=== PATIENT | female | born 1965 | race Caucasian/White ===

== ENCOUNTER 2018-07-01 06:36 | Emergency (ER) | payer OTHER ==
[~2018-07-01] VITALS: Ht 170.2 cm; Wt 86.4 kg
[~2018-07-01 06:36] MED LIST: BENADRYL50 MG PO; LEVAQUIN 750MG750 MG PO; ZYRTEC 10MG10 MG PO
[2018-07-01 06:40] VITALS: TEMP 98
[2018-07-01 08:03] VITALS: BP 162/95; PULSE 62
== END 2018-07-01 08:20 | disposition home or self-care (01) ==
LOC: COL.ER 06:36
DX: R04.0 Epistaxis (principal); M19.90 Unspecified osteoarthritis, unspecified site; F17.210 Nicotine dependence, cigarettes, uncomplicated; Z90.710 Acquired absence of both cervix and uterus

== ENCOUNTER 2018-07-03 14:26 | Emergency (ER) | payer OTHER ==
[~2018-07-03] VITALS: Ht 170.2 cm; Wt 86.4 kg
[2018-07-03 14:41] VITALS: TEMP 98.4
[2018-07-03 15:57] LABS: BASO % 0.6 % (0.0-2.0); EOS % 0.2 % (0-4.0); GRAN # 4.5 (1.4-6.5); GRAN % 72.5 % (42.2-75.2); HEMOGLOBIN 11.3 g/dl (12.5-16.0); LYMPH # 1.3 (1.2-3.4); LYMPH % 20.2 % (20.0-51.0); MEAN CELL VOLUME 90 fl (80.0-100.0); MEAN CORPUSCULAR HEMOGLOBIN 30 pg (27.0-31.0); MEAN CORPUSCULAR HGB CONC 33 g/dl (33.0-37.0); MEAN PLATELET VOLUME 10.4 fl (7.4-10.4); MONO # 0.4 (0.1-0.6); MONO % 6.3 % (1.7-9.3); PLATELET COUNT 236 K/mm3 (130-400); REDCELL DISTRIBUTION WIDTH-CV 13.3 % (11.5-14.5)
[2018-07-03 15:59] LABS: HEMATOCRIT 34.3 % (37.0-47.0)
[2018-07-03 16:06] LABS: CALCIUM 9.6 mg/dL (8.4-10.2); CREATININE, serum 0.83 mg/dL (0.52-1.25); POTASSIUM 3.9 mmol/L (3.4-5.0)
[2018-07-03] MEDS ORDERED: NORVASC 5MG5 MG/TAB PO (16:30)
[2018-07-03 17:49] VITALS: BP 150/70; PULSE 60
== END 2018-07-03 17:52 | disposition home or self-care (01) ==
LOC: COL.ER 14:26
PROVIDERS: Emergency Medicine
DX: R04.0 Epistaxis (principal); I10 Essential (primary) hypertension

== ENCOUNTER 2018-07-04 21:22 | Emergency (ER) | payer OTHER ==
[~2018-07-04] VITALS: Ht 170.2 cm; Wt 86.4 kg
[~2018-07-04 21:22] MED LIST changes: +NORVASC 5MG5 MG/TAB PO
[2018-07-04 21:29] VITALS: TEMP 98.1
[2018-07-04 23:41] VITALS: BP 114/65; PULSE 69
== END 2018-07-04 23:44 | disposition home or self-care (01) ==
LOC: COL.ER 21:22
DX: R04.0 Epistaxis (principal); I10 Essential (primary) hypertension

== ENCOUNTER → 2018-08-25 | Outpatient (CLI) | payer OTHER | LOC: MC.RAD 10:47 | DX: Z12.31 Encounter for screening mammogram for malignant neoplasm of breast (principal); N63.10 Unspecified lump in the right breast, unspecified quadrant; N63.20 Unspecified lump in the left breast, unspecified quadrant ==

== ENCOUNTER → 2018-09-01 | Outpatient (CLI) | payer OTHER | LOC: MC.RAD 12:42 | DX: R92.2 Inconclusive mammogram (principal); Z98.890 Other specified postprocedural states ==

== ENCOUNTER → 2019-03-30 | Outpatient (CLI) | payer OTHER | LOC: MC.RAD 09:38 | DX: N64.89 Other specified disorders of breast (principal) | CPT/HCPCS: G0279 ==